=== PATIENT | female | born 1990 | race Caucasian/White ===

== ENCOUNTER → 2017-07-10 | Outpatient (CLI) | payer BC | LOC: COL.VAS 10:03 | DX: R06.02 Shortness of breath (principal); R01.1 Cardiac murmur, unspecified ==

== ENCOUNTER → 2019-11-12 | Outpatient (CLI) | payer BC | LOC: COL.PUL 08:00 | DX: R06.02 Shortness of breath (principal); R06.2 Wheezing ==

== ENCOUNTER → 2020-01-06 | Outpatient (CLI) | payer BC | LOC: COL.CARD 12-23 10:00 | DX: R00.2 Palpitations (principal) ==

== ENCOUNTER → 2020-02-04 | Outpatient (CLI) | payer BC | LOC: ZCOL.LAB 16:24 | DX: Z20.828 Contact with and (suspected) exposure to other viral communicable diseases (principal) ==